=== PATIENT | male | born 1935 | race Caucasian/White ===

== ENCOUNTER → 2020-11-08 | Outpatient (CLI) | payer MEDICARE ==
--- NOTE | 2020-11-08 12:41 | Diagnostic Imaging Report ---
PROCEDURE: MRI neck without contrast. TECHNIQUE: Multiplanar, multisequence MRI of the neck was performed without contrast. INDICATION: Evaluate for mass in the posterior neck. No evidence of a palpable mass. History of lung cancer. COMPARISON: Cervical spine radiographs performed at an outside facility. FINDINGS: The posterior nasopharynx and oropharynx demonstrate appropriate symmetry. There is no displacement of the parapharyngeal fat planes. There is no abnormal process evident within the prevertebral or retropharyngeal space. There is no evidence of abnormal thickening of the epiglottis or aryepiglottic folds. The vocal folds appear symmetric. The parotid, submandibular and thyroid gland are unremarkable. No pathologically enlarged cervical lymph nodes are evident. No focal inflammatory changes are demonstrated. An exophytic soft tissue mass is seen in the posterior neck to the left of midline measuring 1.8 x 1.8 cm. No fluid collections are seen in the neck. The major flow voids in the neck are preserved. The visualized lung apices are clear. The visualized intracranial contents demonstrate no evidence of pathologic intracranial enhancement or intracranial mass effect. The visualized paranasal sinuses are clear. Small right mastoid effusion is present. No acute fracture is seen in the cervical spine. Advanced degenerative changes are present in the cervical spine with posterior disc bulges, buckling of the ligamentum flavum, and uncovertebral arthropathy. 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 IMPRESSION: 1. Pedunculated exophytic mass arising from the posterior neck left of midline, which may represent a prominent skin tag. No pathologically enlarged lymphadenopathy is seen in the neck. 2. 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 3. Unremarkable aerodigestive tract without evidence of airway compromise. No soft tissue mass or fluid collection. Dictated by: Dictated on workstation # [id number]
== END ==
LOC: RAD 11:00
PROVIDERS: ATTEND Nurse Practitioner Family
DX: M79.89 Other specified soft tissue disorders (principal); M47.812 Spondylosis without myelopathy or radiculopathy, cervical region
CPT/HCPCS: 70540